=== PATIENT | female | born 1950 | race Caucasian/White ===

== ENCOUNTER 2023-11-21 11:33 | Inpatient (IN) | payer MEDICARE, OTHER ==
[~2023-11-21] VITALS: Ht 160 cm; Wt 65.3 kg
[2023-11-21] MEDS ORDERED: RISP0.5T65 PO (11:58)
[2023-11-21] MEDS ORDERED: LORA0.5T48 PO (11:58)
[2023-11-21] MEDS ORDERED: DONE10TA44 PO (11:59)
[2023-11-21] MEDS ORDERED: OXCA300T15 PO (11:59)
[2023-11-21] MEDS ORDERED: NITR0.4T48 SL (11:59)
[2023-11-21] MEDS ORDERED: SENN8.6T19 PO (11:59)
[2023-11-21] MEDS ORDERED: ASPI-495 PO (11:59)
[2023-11-21] MEDS ORDERED: ACET-2605 PO (11:59)
[2023-11-21] MEDS ORDERED: LEVO50TA8 PO (11:59)
[2023-11-21] MEDS ORDERED: RISP0.5T5 PO (11:59)
[2023-11-21] MEDS ORDERED: TEMA7.5C PO (11:59)
[2023-11-21 12:05] LABS: BASOPHILS % (AUTO) 0.9 % (0.0-2.0); EOSINOPHILS # (AUTO) 0.1 K/uL (0.0-0.7); EOSINOPHILS % (AUTO) 1.7 % (0.0-7.0); HEMATOCRIT 38.5 % (31.2-41.9); HEMOGLOBIN 12.8 g/dL (10.9-14.3); LYMPHOCYTES # (AUTO) 0.7 K/uL (0.8-4.8); LYMPHOCYTES % (AUTO) 12.5 % (20.5-51.5); MEAN CORPUSCULAR HEMOGLOBIN 31.6 uug (24.7-32.8); MEAN CORPUSCULAR HGB CONC 33 g/dL (32.3-35.6); MEAN CORPUSCULAR VOLUME 95.2 fL (75.5-95.3); MONOCYTES # (AUTO) 0.4 K/uL (0.1-1.30); MONOCYTES % (AUTO) 7.9 % (0.0-11.0); NEUTROPHILS # (AUTO) 4.2 K/uL (1.8-8.9); PLATELET COUNT (AUTO) 151 K/uL (179-408); RED BLOOD CELL COUNT(AUTO) 4.04 MIL/uL (3.63-4.92); RED CELL DISTRIBUTION WIDTH 14.2 % (12.3-17.7); WHITE BLOOD COUNT (AUTO) 5.4 K/uL (3.8-11.8)
[2023-11-21 12:08] LABS: DIFFERENTIAL COMMENT 1
[2023-11-21 12:13] LABS: CALCIUM 9.1 mg/dL (8.5-10.1); CARBON DIOXIDE 29 mmol/L (21-32); CHLORIDE 103 mmol/L (98-107); CREATININE 0.8 mg/dL (0.6-1.3); GLUCOSE 111 mg/dL (74-106); POTASSIUM 4.2 mmol/L (3.5-5.1); SODIUM SERUM 134 mmol/L (136-145); UREA NITROGEN, BLOOD 14 mg/dL (7-18)
[2023-11-21 12:27] LABS: ALANINE AMINOTRANSFERASE 11 U/L (14-59); ALBUMIN 3.3 g/dL (3.4-5.0); ALKALINE PHOSPHATASE 63 U/L (50-136); ASPARTATE AMINOTRANSFERASE 10 U/L (15-37); BILIRUBIN,DIRECT 0.1 mg/dL (0.0-0.2); BILIRUBIN,TOTAL 0.4 mg/dL (0.2-1.0); TOTAL PROTEIN, SERUM 6.3 g/dL (6.4-8.2)
[2023-11-21 12:34] LABS: ACETAMINOPHEN < 2.0 ug/mL (10-30)
[2023-11-21] MEDS ORDERED: OLANZAPINE 10 MG VIAL IM ONE (13:44)
[2023-11-21] MEDS: OLANZAPINE 10 MG VIAL IM ONE (13:48)
[2023-11-21] MEDS ORDERED: LORAZEPAM 2 MG/1 ML VIAL ONE (15:02)
[2023-11-21] MEDS: LORAZEPAM 2 MG/1 ML VIAL IM ONE (15:09)
[2023-11-21 15:12] LABS: ETHANOL < 3 MG/DL (0-10)
[2023-11-21 18:19] LABS: *BILIRUBIN,URIN NEGATIVE (NEGATIVE); *CLARITY,URINE CLEAR (CLEAR); *COLOR,URINE YELLOW (YELLOW); *KETONES,URINE NEGATIVE (NEGATIVE); *PROTEIN,URINE NEGATIVE (NEGATIVE); LEUKOCYTE ESTERASE ,URINE 1+ (NEGATIVE); NITRITE, URINE NEGATIVE (NEGATIVE); PH,URINE 6.5 (5.0-8.0); UGLUCOSE NEGATIVE (NEGATIVE)
[2023-11-21 18:22] LABS: *BLOOD, URINE NEGATIVE (NEGATIVE)
[2023-11-21 18:23] LABS: RBC,URINE 0-3 /HPF (0-3)
[2023-11-21 18:31] LABS: *AMPHETAMINE, URINE NEGATIVE (NEGATIVE); *BARBITURATE, URINE NEGATIVE (NEGATIVE); *BENZODIAZEPINE, URINE NEGATIVE (NEGATIVE); *CANNABINOID, URINE NEGATIVE (NEGATIVE); *COCCAINE, URINE NEGATIVE (NEGATIVE); *OPIATE, URINE NEGATIVE (NEGATIVE); *PHENCYCLIDINE SCREEN,URINE NEGATIVE (NEGATIVE); FENTANYL, URINE NEGATIVE (NEGATIVE)
[2023-11-21] MEDS ORDERED: ZOLPIDEM 5 MG TABLET PO PRN (19:30)
[2023-11-21] MEDS ORDERED: MAG HYDROX/AL HYDROX/SIMETH 30 ML LIQUID UDC PO PRN (19:30)
[2023-11-21] MEDS ORDERED: MAGNESIUM HYDROXIDE 30 ML LIQUID UDC PO PRN (19:30)
[2023-11-21] MEDS ORDERED: QUETIAPINE FUMARATE 25 MG TABLET PO PRN (19:30)
[2023-11-21] MEDS: BLOOD SUGAR DIAGNOSTIC 1 EACH STRIP VI ONE (19:55)
[2023-11-21 20:09] VITALS: BP 100/61; TEMP 98.1; O2SAT 96
[2023-11-21] MEDS: CLONAZEPAM 0.5 MG TABLET PO ONE (21:06)
[2023-11-21] MEDS ORDERED: NITROGLYCERIN 0.4 MG/TAB BOTTLE SL SCH (21:15)
[2023-11-21] MEDS: CEphaleXIN 500 MG CAPSULE PO SCH (22:00)
[2023-11-22] MEDS: ZOLPIDEM 5 MG TABLET PO PRN (00:08)
[2023-11-22] MEDS ORDERED: NITROGLYCERIN 0.4 MG/TAB BOTTLE SL PRN (05:51)
[2023-11-22] MEDS: ACETAMINOPHEN 325 MG TABLET PO PRN (06:30)
[2023-11-22] MEDS ORDERED: ASPI-1101 PO (07:28)
[2023-11-22] MEDS ORDERED: ATOR20TA PO (07:28)
[2023-11-22] MEDS ORDERED: BISA10SU61 RC (07:30)
[2023-11-22] MEDS ORDERED: OXCA150T5 PO (07:30)
[2023-11-22] MEDS ORDERED: MAGN400O6 PO (07:30)
[2023-11-22] MEDS ORDERED: NA P133E RC (07:30)
[2023-11-22] MEDS: LEVOTHYROXINE SODIUM 50 MCG TABLET PO SCH (07:31)
[2023-11-22] MEDS ORDERED: ASCO500C18 PO (07:34)
[2023-11-22] MEDS ORDERED: CHOL100034 PO (07:34)
[2023-11-22] MEDS ORDERED: ACET-2030 PO ×2 (07:36)
[2023-11-22] MEDS ORDERED: ACET-2154 PO (07:36)
[2023-11-22 08:24] VITALS: BP 120/74; TEMP 98; O2SAT 98
[2023-11-22] MEDS: OXCARBAZEPINE 150 MG TABLET PO ONE (08:38)
[2023-11-22] MEDS: ASPIRIN EC 81 MG TABLET.DR PO SCH (08:38)
[2023-11-22 08:59] LABS: CALCIUM 9.4 mg/dL (8.5-10.1); CHLORIDE 100 mmol/L (98-107); CREATININE 0.7 mg/dL (0.6-1.3); GLUCOSE 110 mg/dL (74-106); GLUCOSE FASTING 110 mg/dL (70-115); MAGNESIUM 1.7 mg/dL (1.8-2.4); PHOSPHOROUS 3.7 mg/dL (2.5-4.9); POTASSIUM 3.8 mmol/L (3.5-5.1); SODIUM SERUM 138 mmol/L (136-145); UREA NITROGEN, BLOOD 13 mg/dL (7-18)
[2023-11-22] MEDS ORDERED: LEVOTHYROXINE SODIUM 50 MCG TABLET PO SCH (09:00)
[2023-11-22 10:28] LABS: THYROID STIMULATING HORMONE 1.829 mIU/mL (0.358-3.740)
[2023-11-22 11:06] LABS: CHOLESTEROL 149 mg/dL (<200); HDL CHOLESTEROL 72 mg/dL (40-60); TRIGLYCERIDES 64 MG/DL (30-150)
[2023-11-22 11:08] LABS: CARBON DIOXIDE 28 mmol/L (21-32)
[2023-11-22] MEDS: DIVALPROEX 125 MG TABLET.DR PO SCH (13:09)
[2023-11-22 15:20] VITALS: BP 105/54; TEMP 98; O2SAT 96
[2023-11-22] MEDS ORDERED: OXCARBAZEPINE 150 MG TABLET PO SCH (17:00)
[2023-11-22] MEDS: OLANZAPINE 2.5 MG TABLET PO SCH (20:09)
[2023-11-22] MEDS: ATORVASTATIN 20 MG TABLET PO SCH (20:09)
[2023-11-22] MEDS: SENNOSIDES 1 TABLET PO SCH (20:09)
[2023-11-22] MEDS ORDERED: OXCARBAZEPINE 300 MG TABLET PO SCH (21:00)
[2023-11-23] MEDS ORDERED: CHOLECALCIFEROL 1,000 UNIT TABLET PO SCH (09:00)
[2023-11-23] MEDS ORDERED: ASCORBIC ACID 500 MG TABLET PO SCH (09:00)
[2023-11-23] MEDS ORDERED: DIVA125T2 PO (10:37)
[2023-11-23] MEDS ORDERED: OLAN2.5T3 PO (10:37)
== END 2023-11-22 20:40 | disposition short-term general hospital (02) | DRG 885 ==
LOC: ER 11:33 → GPS 18:40
PROVIDERS: ADMIT Psychiatry & Neurology Psychiatry; ATTEND Nurse Practitioner Acute Care
DX: F31.9 Bipolar disorder, unspecified (principal); G93.41 Metabolic encephalopathy; F02.811 Dementia in other diseases classified elsewhere, unspecified severity, with agitation; F02.C2 Dementia in other diseases classified elsewhere, severe, with psychotic disturbance; F02.84 Dementia in other diseases classified elsewhere, unspecified severity, with anxiety; L03.113 Cellulitis of right upper limb; E44.1 Mild protein-calorie malnutrition; G31.83 Neurocognitive disorder with Lewy bodies; E03.9 Hypothyroidism, unspecified; E88.09 Other disorders of plasma-protein metabolism, not elsewhere classified; Z68.25 Body mass index [BMI] 25.0-25.9, adult; Z86.73 Personal history of transient ischemic attack (TIA), and cerebral infarction without residual deficits; R26.2 Difficulty in walking, not elsewhere classified; Z79.82 Long term (current) use of aspirin; Z79.890 Hormone replacement therapy; Z79.899 Other long term (current) drug therapy; G47.00 Insomnia, unspecified; Z78.1 Physical restraint status
CPT/HCPCS: 36415; 83735; 84100; 84443; 85025; G0480; J2060; J2358; J7040

== ENCOUNTER 2023-11-22 20:49 | Inpatient (IN) | payer MEDICARE, OTHER ==
[~2023-11-22] VITALS: Ht 160 cm; Wt 75.7 kg
[~2023-11-22 20:49] MED LIST: ACET-2030 PO; ACET-2154 PO; ACET-2605 PO; ASCO500C18 PO; ASPI-1101 PO; ASPI-495 PO; ATOR20TA PO; BISA10SU61 RC; CHOL100034 PO; DONE10TA44 PO; LEVO50TA8 PO; LORA0.5T48 PO; MAGN400O6 PO; NA P133E RC; NITR0.4T48 SL; OXCA150T5 PO; OXCA300T15 PO; RISP0.5T5 PO; RISP0.5T65 PO; SENN8.6T19 PO; TEMA7.5C PO
[2023-11-22 22:00] VITALS: BP 126/54; TEMP 98.5; O2SAT 94
[2023-11-22 23:00] VITALS: O2SAT 94
[2023-11-22] MEDS ORDERED: ONDANSETRON 4 MG/2 ML VIAL IV PRN (23:00)
[2023-11-22] MEDS ORDERED: ACETAMINOPHEN 325 MG TABLET PO PRN (23:00)
[2023-11-23] MEDS ORDERED: VANCOMYCIN IV 0 ML ONE (00:13)
[2023-11-23] MEDS ORDERED: VANCOMYCIN HCL 500 MG VIAL ONE (00:47)
[2023-11-23] MEDS ORDERED: VANCOMYCIN 1000 MG VIAL ONE (00:57)
[2023-11-23] MEDS: VANCOMYCIN IV 1,250 MG in IV NORMAL SALINE 250 ML IV SCH (01:19)
[2023-11-23 06:16] VITALS: BP 120/50; TEMP 97.4; O2SAT 97
[2023-11-23 08:11] LABS: BASOPHILS % (AUTO) 0.3 % (0.0-2.0); EOSINOPHILS # (AUTO) 0.1 K/uL (0.0-0.7); EOSINOPHILS % (AUTO) 1.7 % (0.0-7.0); LYMPHOCYTES # (AUTO) 0.6 K/uL (0.8-4.8); LYMPHOCYTES % (AUTO) 10.5 % (20.5-51.5); MEAN CORPUSCULAR HEMOGLOBIN 32.2 uug (24.7-32.8); MEAN CORPUSCULAR HGB CONC 34 g/dL (32.3-35.6); MEAN CORPUSCULAR VOLUME 94.4 fL (75.5-95.3); MONOCYTES # (AUTO) 0.5 K/uL (0.1-1.30); MONOCYTES % (AUTO) 9.4 % (0.0-11.0); NEUTROPHILS # (AUTO) 4.6 K/uL (1.8-8.9); NEUTROPHILS % (AUTO) 78.1 % (38.5-71.5); PLATELET COUNT (AUTO) 144 K/uL (179-408); RED BLOOD CELL COUNT(AUTO) 4.02 MIL/uL (3.63-4.92); RED CELL DISTRIBUTION WIDTH 13.8 % (12.3-17.7); WHITE BLOOD COUNT (AUTO) 5.8 K/uL (3.8-11.8)
[2023-11-23 08:23] LABS: CALCIUM 8.7 mg/dL (8.5-10.1); CARBON DIOXIDE 29 mmol/L (21-32); CHLORIDE 107 mmol/L (98-107); CREATININE 0.7 mg/dL (0.6-1.3); GLUCOSE 95 mg/dL (74-106); MAGNESIUM 1.6 mg/dL (1.8-2.4); PHOSPHOROUS 3.5 mg/dL (2.5-4.9); POTASSIUM 3.9 mmol/L (3.5-5.1); SODIUM SERUM 141 mmol/L (136-145); UREA NITROGEN, BLOOD 8 mg/dL (7-18)
[2023-11-23 08:25] LABS: DIFFERENTIAL COMMENT 1
[2023-11-23] MEDS ORDERED: OLAN2.5T3 PO (10:37)
[2023-11-23] MEDS ORDERED: DIVA125T2 PO (10:37)
[2023-11-23 11:30] VITALS: BP 106/55; TEMP 98.4; O2SAT 96
[2023-11-23] MEDS: SENNOSIDES 1 TABLET PO SCH (12:27)
[2023-11-23] MEDS: ASPIRIN EC 81 MG TABLET.DR PO SCH (12:27)
[2023-11-23] MEDS: DONEPEZIL 10 MG TABLET PO SCH (12:27)
[2023-11-23] MEDS: ASCORBIC ACID 500 MG TABLET PO SCH (12:27)
[2023-11-23] MEDS: CHOLECALCIFEROL 1,000 UNIT TABLET PO SCH (12:28)
[2023-11-23] MEDS: DIVALPROEX 125 MG TABLET.DR PO SCH (13:11)
[2023-11-23] MEDS ORDERED: MAGNESIUM OXIDE 400 MG TABLET PO ONE (14:30)
[2023-11-23] MEDS: MAGNESIUM SULFATE/D5W 100 ML IV SCH (14:38)
[2023-11-23 16:05] VITALS: BP 117/45; TEMP 98.7; O2SAT 95
[2023-11-23] MEDS: IV NS 1000 ML 1,000 ML IV PRN (17:23)
[2023-11-23] MEDS: OLANZAPINE 10 MG VIAL IM ONE (19:57)
[2023-11-23] MEDS ORDERED: ACETAMINOPHEN 325 MG TABLET PO PRN (21:00)
[2023-11-23] MEDS: ATORVASTATIN 20 MG TABLET PO SCH (21:00)
[2023-11-23] MEDS: OLANZAPINE 2.5 MG TABLET PO SCH (21:00)
[2023-11-23] MEDS: MORPHINE SULFATE 2 MG/1 ML DISP.SYRIN IV PRN (21:25)
[2023-11-23 22:00] VITALS: BP 107/61; TEMP 98.4; O2SAT 95
[2023-11-23] MEDS ORDERED: CEFEPIME HCL 1 G VIAL ONE (22:09)
[2023-11-23] MEDS: CEFEPIME HCL 1 G in IV DEXTROSE 5% 50 ML IV SCH (22:26)
[2023-11-24] MEDS: VANCOMYCIN IV 1,250 MG in IV DEXTROSE 5% 250 ML IV SCH (00:20)
[2023-11-24] MEDS: HYDROCODONE/APAP 5-325MG TABLET PO PRN (02:58)
[2023-11-24] MEDS: LEVOTHYROXINE SODIUM 50 MCG TABLET PO SCH (06:09)
[2023-11-24 06:13] LABS: BASOPHILS % (AUTO) 0.5 % (0.0-2.0); EOSINOPHILS # (AUTO) 0.1 K/uL (0.0-0.7); EOSINOPHILS % (AUTO) 2.5 % (0.0-7.0); HEMATOCRIT 37.8 % (31.2-41.9); HEMOGLOBIN 12.8 g/dL (10.9-14.3); LYMPHOCYTES # (AUTO) 0.9 K/uL (0.8-4.8); LYMPHOCYTES % (AUTO) 16.9 % (20.5-51.5); MEAN CORPUSCULAR HEMOGLOBIN 31.9 uug (24.7-32.8); MEAN CORPUSCULAR HGB CONC 34 g/dL (32.3-35.6); MONOCYTES # (AUTO) 0.4 K/uL (0.1-1.30); NEUTROPHILS # (AUTO) 3.7 K/uL (1.8-8.9); NEUTROPHILS % (AUTO) 72.1 % (38.5-71.5); PLATELET COUNT (AUTO) 157 K/uL (179-408); RED BLOOD CELL COUNT(AUTO) 4.02 MIL/uL (3.63-4.92); RED CELL DISTRIBUTION WIDTH 13.5 % (12.3-17.7); WHITE BLOOD COUNT (AUTO) 5.1 K/uL (3.8-11.8)
[2023-11-24 06:27] LABS: DIFFERENTIAL COMMENT 1
[2023-11-24 06:40] LABS: CALCIUM 8.3 mg/dL (8.5-10.1); CARBON DIOXIDE 27 mmol/L (21-32); CHLORIDE 100 mmol/L (98-107); CREATININE 0.7 mg/dL (0.6-1.3); GLUCOSE 138 mg/dL (74-106); MAGNESIUM 1.7 mg/dL (1.8-2.4); PHOSPHOROUS 3.5 mg/dL (2.5-4.9); POTASSIUM 3.3 mmol/L (3.5-5.1); SODIUM SERUM 134 mmol/L (136-145); UREA NITROGEN, BLOOD 7 mg/dL (7-18)
[2023-11-24] MEDS: POTASSIUM CHLORIDE 50 ML IV SCH (10:19)
[2023-11-24] MEDS: MAGNESIUM SULFATE/D5W 100 ML IV SCH (10:20)
[2023-11-24] MEDS: MAGNESIUM OXIDE 400 MG TABLET PO ONE (10:30)
[2023-11-24] MEDS: POTASSIUM CHLORIDE 20 MEQ TAB.PRT.SR PO ONE (10:30)
[2023-11-24 12:00] VITALS: BP 134/53; TEMP 97.8; O2SAT 97
[2023-11-24] MEDS: BISACODYL 10 MG SUPP.RECT RC ONE (14:16)
[2023-11-24] MEDS: OLANZAPINE 10 MG VIAL IM ONE (17:37)
[2023-11-24 17:38] VITALS: BP 134/68; TEMP 98
[2023-11-24 18:20] VITALS: BP 130/68; TEMP 98; O2SAT 97
[2023-11-24 20:00] VITALS: BP 128/70; TEMP 98.3; O2SAT 96
[2023-11-25 06:42] VITALS: BP 101/50; TEMP 98.5; O2SAT 96
[2023-11-25 11:32] VITALS: BP 118/50; TEMP 98; O2SAT 96
[2023-11-25 15:17] VITALS: BP 117/72; TEMP 98; O2SAT 96
[2023-11-25 19:10] VITALS: BP 109/63; TEMP 98.4; O2SAT 97
[2023-11-25] MEDS: OLANZAPINE 2.5 MG TABLET PO SCH (20:32)
[2023-11-26 06:00] VITALS: BP 123/61; TEMP 97.4; O2SAT 98
[2023-11-26 06:59] LABS: BASOPHILS % (AUTO) 0.7 % (0.0-2.0); EOSINOPHILS # (AUTO) 0.1 K/uL (0.0-0.7); EOSINOPHILS % (AUTO) 3.6 % (0.0-7.0); HEMATOCRIT 35.6 % (31.2-41.9); LYMPHOCYTES % (AUTO) 27.3 % (20.5-51.5); MEAN CORPUSCULAR HEMOGLOBIN 31.5 uug (24.7-32.8); MEAN CORPUSCULAR HGB CONC 34 g/dL (32.3-35.6); MEAN CORPUSCULAR VOLUME 93.3 fL (75.5-95.3); MONOCYTES # (AUTO) 0.3 K/uL (0.1-1.30); NEUTROPHILS # (AUTO) 2.1 K/uL (1.8-8.9); NEUTROPHILS % (AUTO) 59.4 % (38.5-71.5); PLATELET COUNT (AUTO) 168 K/uL (179-408); RED BLOOD CELL COUNT(AUTO) 3.81 MIL/uL (3.63-4.92); RED CELL DISTRIBUTION WIDTH 13.6 % (12.3-17.7); WHITE BLOOD COUNT (AUTO) 3.6 K/uL (3.8-11.8)
[2023-11-26 07:12] LABS: DIFFERENTIAL COMMENT 1
[2023-11-26 07:37] LABS: ALANINE AMINOTRANSFERASE 19 U/L (14-59); ALBUMIN 2.8 g/dL (3.4-5.0); ALKALINE PHOSPHATASE 58 U/L (50-136); ASPARTATE AMINOTRANSFERASE 6 U/L (15-37); BILIRUBIN,TOTAL 0.4 mg/dL (0.2-1.0); CALCIUM 8.6 mg/dL (8.5-10.1); CARBON DIOXIDE 31 mmol/L (21-32); CHLORIDE 108 mmol/L (98-107); CREATININE 0.6 mg/dL (0.6-1.3); GLUCOSE 109 mg/dL (74-106); PHOSPHOROUS 3.9 mg/dL (2.5-4.9); POTASSIUM 4.4 mmol/L (3.5-5.1); SODIUM SERUM 142 mmol/L (136-145); TOTAL PROTEIN, SERUM 5.9 g/dL (6.4-8.2); UREA NITROGEN, BLOOD 7 mg/dL (7-18)
[2023-11-26 12:06] VITALS: BP 100/50; TEMP 98.2; O2SAT 96
[2023-11-26 13:00] VITALS: BP 115/50; TEMP 98.2; O2SAT 96
[2023-11-26] MEDS: OLANZAPINE 10 MG VIAL IM ONE (13:01)
[2023-11-26 13:37] VITALS: BP 122/55; TEMP 98; O2SAT 96
[2023-11-26] MEDS: VANCOMYCIN IV 1,250 MG in IV DEXTROSE 5% 250 ML IV SCH (14:46)
[2023-11-26 20:00] VITALS: BP 133/69; TEMP 98.7; O2SAT 96
[2023-11-26] MEDS: DIVALPROEX 250 MG TABLET.DR PO SCH (20:20)
[2023-11-26] MEDS ORDERED: DIVALPROEX 125 MG TABLET.DR PO SCH (21:00)
[2023-11-27 06:26] VITALS: BP 122/53; TEMP 98; O2SAT 95
[2023-11-27 12:00] VITALS: BP 122/54; TEMP 97.8; O2SAT 95
[2023-11-27] MEDS: MUPIROCIN 2% OINT 22 GM TUBE TP SCH (12:32)
[2023-11-27 16:00] VITALS: BP 116/58; TEMP 98.2; O2SAT 95
[2023-11-27 20:00] VITALS: BP 145/71; TEMP 97.5; O2SAT 95
[2023-11-28 04:47] VITALS: BP 137/72; TEMP 97.8; O2SAT 95
[2023-11-28 09:39] VITALS: BP 143/69; TEMP 97.5; O2SAT 96
[2023-11-28 15:11] VITALS: BP 99/47; TEMP 98.2; O2SAT 96
[2023-11-28] MEDS: LORAZEPAM 0.5 MG TABLET PO ONE (16:43)
[2023-11-28] MEDS: ARGININE/GLUTAMINE/CALCIUM BMB 1 EACH POWD.PACK PO SCH (16:47)
[2023-11-28] MEDS ORDERED: ZIPRASIDONE MESYLATE 20 MG VIAL IM ONE (19:00)
[2023-11-28] MEDS: HALOPERIDOL LACTATE 5 MG/1 ML VIAL IM ONE (19:07)
[2023-11-28 20:18] VITALS: BP 130/61; TEMP 97.7; O2SAT 96
[2023-11-28] MEDS: DOXYCYCLINE HYCLATE 100 MG TABLET PO SCH (21:21)
[2023-11-29 06:41] VITALS: BP 119/50; TEMP 97.6; O2SAT 96
[2023-11-29 07:23] LABS: CARBON DIOXIDE 31 mmol/L (21-32); CHLORIDE 108 mmol/L (98-107); CREATININE 0.6 mg/dL (0.6-1.3); GLUCOSE 84 mg/dL (74-106); POTASSIUM 4.2 mmol/L (3.5-5.1); SODIUM SERUM 143 mmol/L (136-145); UREA NITROGEN, BLOOD 11 mg/dL (7-18)
[2023-11-29 12:00] VITALS: BP 111/50; TEMP 97.6; O2SAT 97
== END 2023-11-29 15:43 | DRG 602 ==
LOC: MEDSURG3 20:49
PROVIDERS: ADMIT Nurse Practitioner Acute Care; ATTEND Nurse Practitioner Acute Care
DX: L03.113 Cellulitis of right upper limb (principal); G93.41 Metabolic encephalopathy; F02.84 Dementia in other diseases classified elsewhere, unspecified severity, with anxiety; F02.818 Dementia in other diseases classified elsewhere, unspecified severity, with other behavioral disturbance; E44.1 Mild protein-calorie malnutrition; F02.82 Dementia in other diseases classified elsewhere, unspecified severity, with psychotic disturbance; E03.9 Hypothyroidism, unspecified; G31.83 Neurocognitive disorder with Lewy bodies; B95.62 Methicillin resistant Staphylococcus aureus infection as the cause of diseases classified elsewhere; F31.9 Bipolar disorder, unspecified; Z79.890 Hormone replacement therapy; Z79.899 Other long term (current) drug therapy; E88.09 Other disorders of plasma-protein metabolism, not elsewhere classified; G47.00 Insomnia, unspecified; E66.9 Obesity, unspecified; Z68.29 Body mass index [BMI] 29.0-29.9, adult; Z66 Do not resuscitate
CPT/HCPCS: 36415; 73130; 83735; 84100; 85025; A4663; G0378; J0692; J1630; J2270; J2358; J3370; J3475; J3480; J3490; J7040; J7050

== ENCOUNTER 2023-11-29 16:12 | Inpatient (IN) | payer MEDICARE, OTHER ==
[~2023-11-29] VITALS: Ht 160 cm; Wt 64.4 kg
[~2023-11-29 16:12] MED LIST changes: -ACET-2030 PO; -ACET-2605 PO; -ASPI-495 PO; +DIVA125T2 PO; -LORA0.5T48 PO; +OLAN2.5T3 PO; -RISP0.5T5 PO; -RISP0.5T65 PO; -TEMA7.5C PO
[2023-11-29] MEDS: BLOOD SUGAR DIAGNOSTIC 1 EACH STRIP VI ONE (17:45)
[2023-11-29] MEDS ORDERED: QUETIAPINE FUMARATE 25 MG TABLET PO PRN (17:45)
[2023-11-29 18:17] VITALS: BP 136/69; TEMP 98; O2SAT 98
[2023-11-29 20:00] VITALS: BP 138/63; TEMP 98; O2SAT 97
[2023-11-29] MEDS: DOXYCYCLINE HYCLATE 100 MG TABLET PO SCH (20:25)
[2023-11-29] MEDS: MUPIROCIN 2% OINT 22 GM TUBE TP SCH (20:25)
[2023-11-29] MEDS: QUETIAPINE FUMARATE 25 MG TABLET PO PRN (20:26)
[2023-11-29] MEDS: ATORVASTATIN 20 MG TABLET PO SCH (21:58)
[2023-11-29] MEDS: ZOLPIDEM 5 MG TABLET PO PRN (22:26)
[2023-11-30] MEDS: LEVOTHYROXINE SODIUM 50 MCG TABLET PO SCH (06:21)
[2023-11-30 08:01] VITALS: BP 128/56; TEMP 98.2; O2SAT 96
[2023-11-30] MEDS: CHOLECALCIFEROL 1,000 UNIT TABLET PO SCH (08:53)
[2023-11-30] MEDS: ASPIRIN EC 81 MG TABLET.DR PO SCH (08:53)
[2023-11-30] MEDS: SENNOSIDES 1 TABLET PO SCH (08:53)
[2023-11-30] MEDS: ASCORBIC ACID 500 MG TABLET PO SCH (08:53)
[2023-11-30] MEDS: ARGININE/GLUTAMINE/CALCIUM BMB 1 EACH POWD.PACK PO SCH (08:54)
[2023-11-30] MEDS: DIVALPROEX 250 MG TABLET.DR PO SCH (09:00)
[2023-11-30] MEDS ORDERED: DONEPEZIL 10 MG TABLET PO SCH (09:00)
[2023-11-30 10:01] LABS: ALANINE AMINOTRANSFERASE 17 U/L (14-59); ALKALINE PHOSPHATASE 60 U/L (50-136); ASPARTATE AMINOTRANSFERASE 9 U/L (15-37); BILIRUBIN,TOTAL 0.3 mg/dL (0.2-1.0); CALCIUM 9.1 mg/dL (8.5-10.1); CARBON DIOXIDE 30 mmol/L (21-32); CHLORIDE 106 mmol/L (98-107); CREATININE 0.7 mg/dL (0.6-1.3); GLUCOSE 197 mg/dL (74-106); POTASSIUM 3.8 mmol/L (3.5-5.1); SODIUM SERUM 142 mmol/L (136-145); TOTAL PROTEIN, SERUM 6.2 g/dL (6.4-8.2); UREA NITROGEN, BLOOD 19 mg/dL (7-18)
[2023-11-30] MEDS: DONEPEZIL 10 MG TABLET PO SCH (13:19)
[2023-11-30] MEDS: OLANZAPINE 2.5 MG TABLET PO SCH (13:59)
[2023-11-30 16:04] VITALS: BP 122/62; TEMP 98; O2SAT 96
[2023-11-30 20:00] VITALS: BP 104/61; TEMP 97.7; O2SAT 95
[2023-11-30] MEDS: DONEPEZIL 5 MG TABLET PO SCH (20:22)
[2023-11-30] MEDS: ZOLPIDEM 5 MG TABLET PO PRN (23:41)
[2023-12-01 08:08] VITALS: BP 124/48; TEMP 98; O2SAT 96
[2023-12-01 15:22] VITALS: BP 132/59; TEMP 98; O2SAT 98
[2023-12-01 20:00] VITALS: BP 128/53; TEMP 97.7; O2SAT 95
[2023-12-02 07:56] VITALS: BP 130/98; TEMP 98.1; O2SAT 98
[2023-12-02 16:19] VITALS: BP 104/62; TEMP 98; O2SAT 98
[2023-12-02] MEDS: OLANZAPINE 2.5 MG TABLET PO SCH (20:17)
[2023-12-03 07:36] LABS: BASOPHILS % (AUTO) 1.2 % (0.0-2.0); EOSINOPHILS # (AUTO) 0.2 K/uL (0.0-0.7); EOSINOPHILS % (AUTO) 5.1 % (0.0-7.0); HEMATOCRIT 33.5 % (31.2-41.9); HEMOGLOBIN 11.3 g/dL (10.9-14.3); LYMPHOCYTES # (AUTO) 1.3 K/uL (0.8-4.8); LYMPHOCYTES % (AUTO) 36.2 % (20.5-51.5); MEAN CORPUSCULAR HEMOGLOBIN 31.6 uug (24.7-32.8); MEAN CORPUSCULAR HGB CONC 34 g/dL (32.3-35.6); MEAN CORPUSCULAR VOLUME 94.2 fL (75.5-95.3); MONOCYTES # (AUTO) 0.3 K/uL (0.1-1.30); MONOCYTES % (AUTO) 8.7 % (0.0-11.0); NEUTROPHILS # (AUTO) 1.8 K/uL (1.8-8.9); NEUTROPHILS % (AUTO) 48.8 % (38.5-71.5); PLATELET COUNT (AUTO) 191 K/uL (179-408); RED BLOOD CELL COUNT(AUTO) 3.56 MIL/uL (3.63-4.92); RED CELL DISTRIBUTION WIDTH 13.9 % (12.3-17.7); WHITE BLOOD COUNT (AUTO) 3.7 K/uL (3.8-11.8)
[2023-12-03 07:51] LABS: ALANINE AMINOTRANSFERASE 13 U/L (14-59); ALBUMIN 2.7 g/dL (3.4-5.0); ALKALINE PHOSPHATASE 56 U/L (50-136); ASPARTATE AMINOTRANSFERASE 5 U/L (15-37); BILIRUBIN,TOTAL 0.2 mg/dL (0.2-1.0); CALCIUM 8.7 mg/dL (8.5-10.1); CARBON DIOXIDE 33 mmol/L (21-32); CHLORIDE 106 mmol/L (98-107); CREATININE 0.7 mg/dL (0.6-1.3); GLUCOSE 86 mg/dL (74-106); POTASSIUM 4.2 mmol/L (3.5-5.1); SODIUM SERUM 142 mmol/L (136-145); TOTAL PROTEIN, SERUM 5.5 g/dL (6.4-8.2); UREA NITROGEN, BLOOD 15 mg/dL (7-18); VALPROIC ACID 60 ug/mL (50-100)
[2023-12-03 07:57] LABS: DIFFERENTIAL COMMENT 1
[2023-12-03 08:23] VITALS: BP 111/69; TEMP 98.4; O2SAT 97
[2023-12-03 16:08] VITALS: BP 126/56; TEMP 98.1; O2SAT 97
[2023-12-03] MEDS: VALPROIC ACID 250 MG/5 ML LIQUID UDC PO SCH (20:14)
[2023-12-03 20:20] VITALS: BP 112/64; TEMP 98.2; O2SAT 95
[2023-12-03] MEDS: diphenhydrAMINE 50 MG/1 ML VIAL IM ONE (22:35)
[2023-12-03] MEDS: OLANZAPINE 10 MG VIAL IM ONE (22:35)
[2023-12-04 08:00] VITALS: BP 97/60; TEMP 98.4; O2SAT 98
[2023-12-04] MEDS: ZIPRASIDONE MESYLATE 20 MG VIAL IM ONE (15:40)
[2023-12-04 16:00] VITALS: BP 98/68; TEMP 98.6; O2SAT 97
[2023-12-04] MEDS: BENZTROPINE MESYLATE 0.5 MG TABLET PO SCH (16:39)
[2023-12-04 20:00] VITALS: BP 130/61; TEMP 98.1; O2SAT 97
[2023-12-04] MEDS: OLANZAPINE 2.5 MG TABLET PO SCH (21:00)
[2023-12-05 07:39] VITALS: BP 98/50; TEMP 98; O2SAT 98
[2023-12-05] MEDS: ZIPRASIDONE MESYLATE 20 MG VIAL IM STA (08:30)
[2023-12-05 15:57] VITALS: BP 116/46; TEMP 98; O2SAT 98
[2023-12-05] MEDS: CLONAZEPAM 0.5 MG TABLET PO SCH (16:20)
[2023-12-05 20:46] VITALS: BP 129/43; TEMP 97.7; O2SAT 96
[2023-12-06 08:22] VITALS: BP 136/61; TEMP 98.2; O2SAT 99
[2023-12-06 15:09] VITALS: BP 108/58; TEMP 98; O2SAT 98
[2023-12-06 20:00] VITALS: BP 90/63; TEMP 98.2; O2SAT 96
[2023-12-06] MEDS: OLANZAPINE 5 MG TABLET PO SCH (20:33)
[2023-12-06] MEDS ORDERED: OLANZAPINE 2.5 MG TABLET PO SCH (21:00)
[2023-12-06 22:30] VITALS: BP 103/54; O2SAT 95
[2023-12-07 07:47] VITALS: BP 126/69; TEMP 98.2; O2SAT 99
[2023-12-07] MEDS: HYDROCODONE/APAP 5-325MG TABLET PO PRN (14:09)
[2023-12-07 15:29] VITALS: BP 141/69; TEMP 98; O2SAT 98
[2023-12-07 19:50] VITALS: BP 132/60; TEMP 98; O2SAT 98
[2023-12-08 11:40] VITALS: BP 138/55; TEMP 98.1
[2023-12-08 20:00] VITALS: BP 127/70; TEMP 98.1; O2SAT 100
[2023-12-08] MEDS: MEMANTINE HCL 5 MG TABLET PO SCH (21:02)
[2023-12-09 08:20] VITALS: BP 125/62; TEMP 98.4; O2SAT 98
[2023-12-09 17:01] VITALS: BP 102/52; TEMP 98.2; O2SAT 97
[2023-12-09 21:06] VITALS: BP 116/56; TEMP 98.1; O2SAT 96
[2023-12-10 09:16] VITALS: BP 101/51; TEMP 98.2; O2SAT 97
[2023-12-10 16:22] VITALS: BP 107/54; TEMP 98.2; O2SAT 97
[2023-12-10 20:17] VITALS: BP 107/49; TEMP 98; O2SAT 98
[2023-12-10] MEDS: ACETAMINOPHEN 325 MG TABLET PO PRN (21:08)
[2023-12-11 08:26] VITALS: BP 125/51; TEMP 98.3; O2SAT 97
[2023-12-11] MEDS: CLONAZEPAM 0.5 MG TABLET PO SCH (13:00)
[2023-12-11 16:47] VITALS: BP 91/50; TEMP 98; O2SAT 97
[2023-12-11 20:08] VITALS: BP 111/52; TEMP 98.1; O2SAT 95
[2023-12-12 07:45] VITALS: BP 122/55; TEMP 98; O2SAT 98
[2023-12-12 15:38] VITALS: BP 116/64; TEMP 98; O2SAT 98
[2023-12-12] MEDS: GABAPENTIN 300 MG CAPSULE PO SCH (16:51)
[2023-12-12 19:59] VITALS: BP 102/50; TEMP 98.1; O2SAT 95
[2023-12-13 07:55] VITALS: BP 110/65; TEMP 98.2; O2SAT 98
[2023-12-13 16:19] VITALS: BP 116/54; TEMP 97.8; O2SAT 94
[2023-12-13 19:57] VITALS: BP 100/51; TEMP 97.9; O2SAT 97
[2023-12-14 08:47] VITALS: BP 116/62; TEMP 98.2; O2SAT 98
== END 2023-12-14 15:00 | DRG 885 ==
LOC: GPS 16:12
PROVIDERS: ADMIT Psychiatry & Neurology Psychiatry
DX: F31.9 Bipolar disorder, unspecified (principal); L03.113 Cellulitis of right upper limb; F03.92 Unspecified dementia, unspecified severity, with psychotic disturbance; F03.93 Unspecified dementia, unspecified severity, with mood disturbance; F03.911 Unspecified dementia, unspecified severity, with agitation; E44.1 Mild protein-calorie malnutrition; B95.62 Methicillin resistant Staphylococcus aureus infection as the cause of diseases classified elsewhere; E88.09 Other disorders of plasma-protein metabolism, not elsewhere classified; Z79.899 Other long term (current) drug therapy
CPT/HCPCS: 36415; 80164; 85025; 93005; J1200; J2358; J3486; J3490